=== PATIENT | female | born 1985 | race Caucasian/White ===

== ENCOUNTER 2018-05-13 14:47 | Emergency (ER) | payer OTHER ==
[~2018-05-13] VITALS: Ht 160 cm; Wt 93.1 kg
[~2018-05-13 14:47] MED LIST: CITA40TA4 PO; CLON1TAB10 PO; CYM30 PO; DOXE100C4 PO; IUD'IUD INT UTER; MIRT30TA3 PO; NRN800 PO; PROP20TA67 PO; SUMA1INJ5 IM; SUMA50TA15 PO; ZOLP10TA6 PO; [UNRECOGNIZED DRUG - CODE] PO
[2018-05-13 14:53] VITALS: O2SAT 97; Ht 160 cm; Wt 93.1 kg
[2018-05-13] MEDS ORDERED: MIRT30TA2 PO (15:31)
[2018-05-13] MEDS ORDERED: QUET1TAB37 PO (15:31)
[2018-05-13] MEDS ORDERED: SUMA6KIT INJ (15:31)
[2018-05-13] MEDS ORDERED: CTP/1 PO (15:31)
[2018-05-13] MEDS ORDERED: CLON1TAB10 PO (15:31)
[2018-05-13] MEDS ORDERED: HYDR50CA2 PO (15:31)
[2018-05-13] MEDS ORDERED: NRN600 PO (15:31)
[2018-05-13] MEDS ORDERED: PROP20TA67 PO (15:31)
[2018-05-13] MEDS ORDERED: KETOROLAC TROMETHAMINE 30 MG/ML VIAL IV STA (15:46)
[2018-05-13] MEDS ORDERED: PROMETHAZINE HCL INJ 25 MG/ML 1 ML VIAL IM STA ×2 (15:46→18:57)
[2018-05-13] MEDS ORDERED: SODIUM CHLORIDE 0.9% 500ML 500 ML IV STA (15:46)
[2018-05-13] MEDS ORDERED: PROMETHAZINE HCL INJ 25 MG in SODIUM CHLORIDE 0.9% 50ML 50 ML IV SCH (16:00)
[2018-05-13] MEDS ORDERED: PROMETHAZINE HCL INJ 25 MG/ML 1 ML VIAL IV STA (16:06)
[2018-05-13 16:13] LABS: BASO % 0.4 %; BASO ABS # 0.04 K/uL (0-0.2); EOS % 1.3 %; EOS ABS # 0.12 K/uL (0-0.5); HEMATOCRIT 39.3 % (37-47); HEMOGLOBIN 14.1 g/dL (12.0-16.0); IG# 0.01 K/uL (0.00-0.02); LYMPH % 45.4 %; LYMPH ABS # 4.23 K/uL (1.2-3.4); MEAN CELL VOLUME 92.3 fL (80-100); MEAN CORPUSCULAR HEMOGLOBIN 33.1 pg (25-34); MEAN CORPUSCULAR HGB CONC 35.9 g/dl (32-36); MEAN PLATELET VOLUME 9.7 fL (7.4-10.4); MONO % 4.7 %; MONO ABS # 0.44 K/uL (0.11-0.59); NEUT % 48.1 %; NEUT ABS # 4.47 K/uL (1.4-6.5); PLATELET COUNT 252 K/uL (130-400); RED CELL DISTRIBUTION WIDTH SD 43.4 fL (36.4-46.3); WHITE BLOOD COUNT 9.31 K/uL (4.8-10.8)
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
[2018-05-13] MEDS ORDERED: PROMETHAZINE HCL INJ 25 MG in SODIUM CHLORIDE 0.9% 50ML 50 ML IV PRN (16:15)
[2018-05-13 16:40] LABS: ALBUMIN 3.3 gm/dl (3.4-5.0); ALKALINE PHOSPHATASE 95 U/L (45-117); ALT/SGPT 31 U/L (12-78); AST/SGOT 18 U/L (15-37); BLOOD UREA NITROGEN 6 mg/dl (7-18); CALCIUM 8.8 mg/dl (8.5-10.1); CARBON DIOXIDE 20 mmol/L (21-32); CREATININE 0.71 mg/dl (0.60-1.20); GLUCOSE 89 mg/dl (70-99); POTASSIUM 3.8 mmol/L (3.5-5.1); SODIUM 140 mmol/L (136-145); TOTAL PROTEIN 6.9 gm/dl (6.4-8.2)
--- NOTE | 2018-05-13 16:56 | DIAGNOSTIC IMAGING REPORT ---
CHEST ONE VIEW PORTABLE HISTORY: 32 years-old Female L sided CP acute atypical chest pain, left greater than right COMPARISON: Chest radiograph 11/26/2011 TECHNIQUE: AP view of the chest FINDINGS: Cardiomediastinal and hilar silhouettes are within normal limits. No pneumothorax, pleural effusion, focal airspace consolidation or overt pulmonary edema. Bones of the chest appear grossly intact. IMPRESSION: No acute process. The above report was generated using voice recognition software. It may contain grammatical, syntax or spelling errors. Electronically signed by: Mario Chauhan M.D. 05/13/2018 4:55 PM Dictated Date/Time: 05/13/2018 4:54 PM
[2018-05-13] MEDS ORDERED: NITROGLYCERIN 2% OINTMENT 30GM TUBE EXT STA (18:08)
[2018-05-13 19:50] VITALS: BP 131/78; PULSE 69; TEMP 36.9; O2SAT 97
== END 2018-05-13 19:52 | disposition home or self-care (01) ==
LOC: EDBD 14:47 → C.EDB 14:47
DX: R07.9 Chest pain, unspecified (principal); F41.9 Anxiety disorder, unspecified; R42 Dizziness and giddiness; F32.9 Major depressive disorder, single episode, unspecified; F17.200 Nicotine dependence, unspecified, uncomplicated; Z83.3 Family history of diabetes mellitus; Z79.899 Other long term (current) drug therapy